=== PATIENT | male | born 1945 | race Caucasian/White ===

== ENCOUNTER → 2018-12-17 09:29 | Outpatient (CLI) | payer MEDICARE, OTHER ==
[~2018-12-17 09:29] MED LIST: ALBUTEROL SULF8.5 GM INH; ALBUTEROL2.5 MG/3 M INH; BAYER CHEWABLE81 MG PO; BICALUTAMIDE PO; BROVANA15 MCG/2 M INH; COREG12.5 MG PO; ELIQUIS5 MG PO; FLUNISOLIDE29 MCG NASAL; FLUTICASONE PRO16 GM; FLUTICASONE PRO16 GM NASAL; MOBIC7.5 MG PO; SINGULAIR10 MG PO; TAMSULOSIN HCL 0.4 MG PO; VOLTAREN100 GM TOPICAL
[2018-12-19 13:21] VITALS: BMI 31.4
== END | disposition home or self-care (01) ==
LOC: D.RT 09:29
PROVIDERS: ATTEND Internal Medicine Cardiovascular Disease
DX: C34.90 Malignant neoplasm of unspecified part of unspecified bronchus or lung (principal)

== ENCOUNTER 2018-12-18 10:15 | Inpatient (IN) | payer MEDICARE, OTHER ==
[~2018-12-18] VITALS: Ht 175.3 cm; Wt 92.2 kg
--- NOTE | 2018-12-18 16:17 | NUR ---
PT ARRIVED DIRECT ADMIT.
[2018-12-18] MEDS ORDERED: MOBIC7.5 MG PO (16:41)
[2018-12-18] MEDS ORDERED: TAMSULOSIN HCL 0.4 MG PO (16:43)
[2018-12-18] MEDS ORDERED: BICALUTAMIDE PO (16:44)
[2018-12-18] MEDS ORDERED: COREG12.5 MG PO (16:45)
[2018-12-18] MEDS ORDERED: VOLTAREN100 GM TOPICAL (16:51)
[2018-12-18] MEDS ORDERED: FLUNISOLIDE29 MCG NASAL (16:52)
[2018-12-18] MEDS ORDERED: ALBUTEROL SULF8.5 GM INH (16:54)
[2018-12-18 17:49] LABS: BASOPHILS 0.3 % (0-2); EOSINOPHILS 4.1 % (0-7); HEMATOCRIT 38.1 % (42.0-54.0); HEMOGLOBIN 12.9 g/dL (13.5-17.5); IMMATURE GRANULOCYTES 0.3 % (0-5); LYMPHOCYTES 30.2 % (15-50); MCH 32.1 pg (26.0-34.0); MCHC 33.9 g/dL (31.0-37.0); MCV 94.8 fL (80.0-100.0); MEAN PLATELET VOLUME 8.8 fL (7.4-10.4); MONOCYTES 6.8 % (2-11); NEUTROPHILS 58.3 % (40-80); PLATELET COUNT 236 10x3/uL (130-400); RBC 4.02 10x6/uL (4.20-6.10); RDW 15.4 % (11.5-14.5); WBC 10.4 10x3/uL (4.8-10.8)
[2018-12-18 18:12] LABS: ANION GAP 13.6 mmol/L (8-16); BILIRUBIN - TOTAL 0.27 mg/dL (0.2-1.3); CALCIUM 9.4 mg/dL (8.5-10.1); CARBON DIOXIDE 28.8 mmol/L (21.0-32.0); CREATININE - SERUM 1.1 mg/dL (0.6-1.3); MAGNESIUM - SERUM 1.7 mg/dL (1.8-2.4); PHOSPHOROUS 3.8 mg/dL (2.5-4.9); POTASSIUM - SERUM 4.4 mmol/L (3.5-5.1); PROTEIN - SERUM 7.5 g/dL (6.4-8.2)
[2018-12-18 18:44] LABS: APPEARANCE HAZY (CLEAR); BILIRUBIN NEGATIVE (NEGATIVE); COLOR YELLOW (YELLOW); GLUCOSE NEGATIVE (NEGATIVE); KETONE NEGATIVE (NEGATIVE); NITRITE NEGATIVE (NEGATIVE); PROTEIN TRACE mg/dL (NEGATIVE); SPECIFIC GRAVITY 1.015 (1.005-1.020); UROBILINOGEN NORMAL (NORMAL)
[2018-12-18 18:48] LABS: BACTERIA MODERATE /hpf (NONE SEEN); RED CELLS - URINE 0-5 /hpf (0-5)
[2018-12-18 19:18] VITALS: BP 140/77; BMI 31.5
--- NOTE | 2018-12-18 19:30 | NUR ---
RESUMING PATIENT CARE. PATIENT IS ALERT AND ORIENTED. RESPIRATIONS ARE EVEN AND UNLABORED. NO S/S OF DISTRESS. NO C/O PAIN. PATIENT REQUESTING A NEW BED. PATIENT UPSET STATING THAT THE BED IS NOT OPERATING PROPERLY AND HE IS UNCOMFORTABLE. FOR PATIENT SATISFACTION PATIENT RECEIVED A NEWER BED WE HAD ON THE FLOOR. ALL OTHER NEEDS MET. CALL LIGHT WITHIN REACH. WILL CPOC.
[2018-12-18 20:00] VITALS: BP 136/52
--- NOTE | 2018-12-18 21:45 | NUR ---
PATIENT UPSET. HE SAID "THAT HE WAS TOLD HE WOULD BE SEEING A DOCTOR HECTOR. HE STATED THAT THIS WAS UNEXCEPTABLY AND THAT OBVIOUSLY HIS CONDITION IS NOT LIFE THREATENING SINCE HE HAS NOT BEEN SEEN." I SAT IN PATIENT ROOM AND ALLOWED HIM TO VENT. PATIENT REFUSED TO TAKE HIS HS MEDS EXCEPT FOR COREG, CASODEX, LOVENOX. CALL LIGHT WITHIN REACH. WILL CPOC.
[2018-12-19] VITALS: BP 134/52
--- NOTE | 2018-12-19 00:11 | NUR ---
PATIENT RESTING COMFORTABLY IN BED. RESPIRATIONS ARE EVEN AND UNLABORED. NO S/S OF DISTRESS. CALL LIGHT WITHIN REACH. WILL CPOC.
[2018-12-19 04:00] VITALS: BP 149/74
--- NOTE | 2018-12-19 07:35 | NUR ---
AM ROUNDING DONE WITH DR MONROY IN TO SEE PATIENT AND . PATIENT IS ON HEART MONITOR SHOWING SR, HR 81. ON ROOM AIR. LEFT HAND PIV SEEN WITH SALINE LOCK. ORANGE SWAB CAP IN USE. WILL CALL MARGY OR ANAND AT DR GARDNER'S OFFICE FOR NICOTINE PATCH THIS AM.
--- NOTE | 2018-12-19 08:33 | NUR ---
PAGE INTO MARGY OR ANAND FOR NICOTINE PATCH. AWAITING CALL BACK.
--- NOTE | 2018-12-19 08:38 | NUR ---
RECEIVED CALL BACK FROM [facility]IAH JI PATCH PER DR GARDNER.
--- NOTE | 2018-12-19 12:57 | NUR ---
COMPLETE BED LINENS CHANGED AND BATH DONE.
[2018-12-19 13:21] VITALS: Ht 175.3 cm; Wt 92.2 kg
--- NOTE | 2018-12-19 15:53 | NUR ---
ARIANNA NEEDS, BEEN VISITING WITH FRIENDS.
--- NOTE | 2018-12-19 16:36 | NUR ---
SITTING ON SIDE OF BED STILL VISITING WITH FRIENDS AND . DENIES ANY NEEDS AT THIS TIME.
--- NOTE | 2018-12-19 19:46 | NUR ---
RECIEVED SITTING UP ON SIDE OF BED WITH SPOUSE AT BEDSIDE. ALERT AND ORIENTED X4. UP AD ANIL. TELEMETRY IN PLACE. IV TO LEFT HAND SL.. DENIES ANY NEEDS AT THIS TIME.
[2018-12-19 21:17] VITALS: BP 116/56
[2018-12-20 01:04] VITALS: BP 121/59
[2018-12-20 03:55] VITALS: BP 103/41
--- NOTE | 2018-12-20 07:30 | NUR ---
RECEIVED PT IN BED SITTING ON SIDE DENIES ANY NEEDS OR DISCOMFORT AT THIS TIME NAD NOTED
[2018-12-20 07:56] VITALS: BP 120/65
--- NOTE | 2018-12-20 10:00 | NUR ---
PT VERY UPSET AWAITING DR GARDNER TO MAKE ROUNDS FOR DISCHARGE
[2018-12-20 13:35] VITALS: BP 123/60
--- NOTE | 2018-12-20 15:10 | NUR ---
CALLED [facility] TO CHECK SEE IF DR GADRNER WAS THERE WAS INFORMED DR ALLEN WAS CROWNING INSPECTOR AND HAD MADE ROUNDS
--- NOTE | 2018-12-20 15:15 | NUR ---
DR ALLEN CALLED STATED WANTED DR ZABALA TO SEE PT AND IF OK WITH HIM PT POSSIBLY DC
[2018-12-20] MEDS ORDERED: BROVANA15 MCG/2 M INH (15:38)
[2018-12-20] MEDS ORDERED: ALBUTEROL2.5 MG/3 M INH (15:39)
[2018-12-20] MEDS ORDERED: ELIQUIS5 MG PO (15:40)
[2018-12-20] MEDS ORDERED: BAYER CHEWABLE81 MG PO (15:45)
[2018-12-20] MEDS ORDERED: SINGULAIR10 MG PO (15:46)
[2018-12-20] MEDS ORDERED: FLUTICASONE PRO16 GM NASAL ×2 (15:49→15:50)
[2018-12-20] MEDS ORDERED: FLUTICASONE PRO16 GM (15:53)
--- NOTE | 2018-12-20 16:45 | NUR ---
DCD SALINE LOCK TO LT HAND WITH IV CATHETER INTACT SITE FREE OF REDNESS OR EDEMA
--- NOTE | 2018-12-20 16:50 | NUR ---
PT WALKING DOWN HALLWAY STATED I WILL BE IN THE CAR FOLLOWING TAKING ITEMS OUT STATED WOULD BE DOWN STAIRS TO GET DISCHARGE PAPERS PUT DISCHARGE PAPERS TOGETHER WENT DOWN STAIR TO COURT SUPERVISOR MAHI GOINS STANDING AT DESK REVIEWED DISCHARGE PAPERWORK. MAHI SPOKE TO CASEMANAGEMENT UPD TREATMENTS AND NEBULIZER ORDERED PT HAD ALL OTHER MEDICATIONS STATED UNDERSTANDING SIGNED DISCHARGE APOLOGIZIED FOR PT BEHAVIOR THANK ME AND LEFT
--- NOTE | 2018-12-20 21:46 | MORECARE ---
CASE MANAGEMENT DISCHARGE SUMMARY PATIENT: KIM GOINS UNIT: [id number] ADM DATE: 12/18/18 AGE: 73 : 47 SEX: M ROOM/BED: D.2118 AUTHOR: PAULINE ALDRIDGE PHYSICIAN: REFERRING PHYSICIAN: DHARA GARDNER MD DATE OF SERVICE: 12/20/18 Discharge Plan Patient Name: KIM GOINS [facility] [facility] 1945 Planned Disposition: Home Anticipated Discharge Date: 12/20/18 Discharge Date: 12/20/2018 Expected LOS: 2 Initial Reviewer: [email or web address] Initial Review Date: 12/18/2018 Generated: 12/20/18 10:45 pm Patient Name: KIM GOINS Page [id number] at 2146 All edits/amendments must be made on the electronic document DICTATION DATE: 12/20/182144 PROPERTY ADJUSTER: AMANDA 12/20/182144 RPT#: [id number] DC DATE:12/20/18 STATUS: DIS IN [facility] [address] [place] [address] END OF REPORT
--- NOTE | 2018-12-20 21:52 | MORECARE ---
CASE MANAGEMENT DISCHARGE SUMMARY PATIENT: KIM GOINS UNIT: [id number] ADM DATE: 12/18/18 AGE: 73 : 47 SEX: M ROOM/BED: D.2118 AUTHOR: PAULINE ALDRIDGE PHYSICIAN: REFERRING PHYSICIAN: DHARA GARDNER MD DATE OF SERVICE: 12/20/18 Discharge Plan Patient Name: KIM GOINS Facility: [facility]:[place] : 1945 Planned Disposition: Home Anticipated Discharge Date: 12/20/18 Discharge Date: 12/20/2018 Expected LOS: 2 Initial Reviewer: [email or web address] Initial Review Date: 12/18/2018 Generated: 12/20/18 10:52 pm Comments DCP- Discharge Planning Updated by [id number]: Magy Trujillo on 12/20/18 8:[address] LATE ENTRY CM RECEIVED TELEPHONE CALL FROM PRIMARY NURSE, ROZ, REGARDING A NEBULIZER FOR THE PATIENT. CM STATED AN ORDER WOULD BE NEEDED.. THE PATIENT WAS IN THE CAR. HE WAS READY FOR DISCHARGE. HE NEEDED A NEBULIZER. CM SPOKE WITH THE ON THE PHONE.TO CONFIRM THE ADDRESS FOR DELIVERY AND CONTACT PHONE NUMBER. HE SON HAS A NEBULIZER THAT HE STATED HE COULD USE.. ADVISED THE PATIENT SHOULD HAVE HIS OWN. HAD NO PREFERRED PROVIDER. CM UNABLE TO MEET W/ PATIENT OR I WAS WITH ANOTHER PATIENT. NURSE OBTAINED AN ORDER. NURSE TO CALL JANITOR CARETAKER TO GET MEDICATION UNTIL DME COULD ORDER THE PATIENT'S. CM WILL FOLLOW UP IN THE AM TO HAVE NEBULIZER DELIVERED. Last DP export: 12/20/18 8:45 p Patient Name: KIM GOINS Page [id number] at 2152 All edits/amendments must be made on the electronic document DICTATION DATE: 12/20/182151 MULTI PUNCH OPERATOR: AMANDA 12/20/182151 RPT#: [id number] DC DATE:12/20/18 STATUS: DIS IN [facility] [address] [place] [address] END OF REPORT
--- NOTE | 2018-12-21 18:28 | MORECARE ---
CASE MANAGEMENT DISCHARGE SUMMARY PATIENT: KIM GOINS UNIT: [id number] ADM DATE: 12/18/18 AGE: 73 : 47 SEX: M ROOM/BED: D.2118 AUTHOR: PAULINE ALDRIDGE PHYSICIAN: REFERRING PHYSICIAN: DHARA GARDNER MD DATE OF SERVICE: 12/21/18 Discharge Plan Patient Name: KIM GOINS Facility: [facility]:[place] : 1945 Planned Disposition: Home Anticipated Discharge Date: 12/20/18 Discharge Date: 12/20/2018 Expected LOS: 2 Initial Reviewer: [email or web address] Initial Review Date: 12/18/2018 Generated: 12/21/18 7:28 pm Comments DCP- Discharge Planning Updated by [email or web address]: Magy Trujillo on 12/20/18 8:[address] LATE ENTRY CM RECEIVED TELEPHONE CALL FROM PRIMARY NURSE, ROZ, REGARDING A NEBULIZER FOR THE PATIENT. CM STATED AN ORDER WOULD BE NEEDED.. THE PATIENT WAS IN THE CAR. HE WAS READY FOR DISCHARGE. HE NEEDED A NEBULIZER. CM SPOKE WITH THE ON THE PHONE.TO CONFIRM THE ADDRESS FOR DELIVERY AND CONTACT PHONE NUMBER. HE SON HAS A NEBULIZER THAT HE STATED HE COULD USE.. ADVISED THE PATIENT SHOULD HAVE HIS OWN. HAD NO PREFERRED PROVIDER. CM UNABLE TO MEET W/ PATIENT OR I WAS WITH ANOTHER PATIENT. NURSE OBTAINED AN ORDER. NURSE TO CALL RESIDENTIAL PLUMBER TO GET MEDICATION UNTIL DME COULD ORDER THE PATIENT'S. CM WILL FOLLOW UP IN THE AM TO HAVE NEBULIZER DELIVERED. Last DP export: 12/20/18 8:52 p Patient Name: KIM GOINS Page [id number] at 1828 All edits/amendments must be made on the electronic document DICTATION DATE: 12/21/181827 CURRICULUM SUPERVISOR: AMANDA 12/21/181827 RPT#: [id number] DC DATE:12/20/18 STATUS: DIS IN [facility] [address] [place] [address] END OF REPORT
--- NOTE | 2018-12-21 18:42 | MORECARE ---
CASE MANAGEMENT DISCHARGE SUMMARY PATIENT: KIM GOINS UNIT: [id number] ADM DATE: 12/18/18 AGE: 73 : 47 SEX: M ROOM/BED: D.4608 AUTHOR: OLY,DOC PHYSICIAN: REFERRING PHYSICIAN: DHARA GARDNER MD DATE OF SERVICE: 12/21/18 Discharge Plan Patient Name: KIM GOINS Facility: [facility]:[place] : 1945 Planned Disposition: Home Anticipated Discharge Date: 12/20/18 Discharge Date: 12/20/2018 Expected LOS: 2 Initial Reviewer: [email or web address] Initial Review Date: 12/18/2018 Generated: 12/21/18 7:42 pm Comments DCP- Discharge Planning Updated by [email or web address]: Magy Trujillo on 12/21/18 5:[address] LATE ENTRY TC TO [facility] [place] IN [place], [place] REGARDING DELIVERY OF NEBULIZER TO THE PATIENT'S HOME. TC TO THE PATIENT AND HE STATED [facility] THE NE[facility]ULIZER TODAY. 180 RECEIVED TELEPHONE CALL FROM KAREN KULKARNI. HE WAS AT THE PATIENT'S HOME W/ NEBULIZER. LUIS REQUESTED FAX NUMBER SO THAT I COULD FAX FACE KYLE, ORDER CONTACT INFORMATION AND CLINICAL INFORMATION. SHAD HERNANDEZ PHONE # [phone] FAX # [phone]. FAXED ABOVE. DCP- Discharge Planning Updated by [id number]: Magy Trujillo on 12/20/18 8:[address] LATE ENTRY CM RECEIVED TELEPHONE CALL FROM PRIMARY NURSE, ROZ, REGARDING A NEBULIZER FOR THE PATIENT. CM STATED AN ORDER WOULD BE NEEDED.. THE PATIENT WAS IN THE CAR. HE WAS READY FOR DISCHARGE. HE NEEDED A NEBULIZER. CM SPOKE WITH THE ON THE PHONE.TO CONFIRM THE ADDRESS FOR DELIVERY AND CONTACT PHONE NUMBER. HE SON HAS A NEBULIZER THAT HE STATED HE COULD USE.. ADVISED THE PATIENT SHOULD HAVE HIS OWN. HAD NO PREFERRED PROVIDER. CM UNABLE TO MEET W/ PATIENT OR I WAS WITH ANOTHER PATIENT. NURSE OBTAINED AN ORDER. NURSE TO CALL FRACTIONATION SUPERVISOR TO GET MEDICATION UNTIL DME COULD ORDER THE PATIENT'S. CM WILL FOLLOW UP IN THE AM TO HAVE NEBULIZER DELIVERED. Last DP export: 12/21/18 5:28 p Patient Name: KIM GOINS Page [phone] at 1842 All edits/amendments must be made on the electronic document DICTATION DATE: 12/21/181841 MERCHANDISING CONSULTANT: AMANDA 12/21/181841 RPT#: [id number] DC DATE:12/20/18 STATUS: DIS IN [facility] [address] [place] [address] END OF REPORT
--- NOTE | 2018-12-22 08:42 | MORECARE ---
CASE MANAGEMENT DISCHARGE SUMMARY PATIENT: KIM GOINS UNIT: [id number] ADM DATE: 12/18/18 AGE: 73 : 47 SEX: M ROOM/BED: D.8756 AUTHOR: OLY,DOC PHYSICIAN: REFERRING PHYSICIAN: DHARA GARDNER MD DATE OF SERVICE: 12/22/18 Discharge Plan Patient Name: KIM GOINS Facility: [facility]:[place] : 1945 Planned Disposition: Home Anticipated Discharge Date: 12/20/18 Discharge Date: 12/20/2018 Expected LOS: 2 Initial Reviewer: [id number] Initial Review Date: 12/18/2018 Generated: 12/22/18 9:42 am Comments DCP- Discharge Planning Updated by [id number]: Magy Trujillo on 12/21/18 5:[address] LATE ENTRY TC TO [facility] IN [place], [place] REGARDING DELIVERY OF NEBULIZER TO THE PATIENT'S HOME. TC TO THE PATIENT AND HE STATED [facility] WOULD BE DELIVERING THE NEBULIZER TODAY. 180 RECEIVED TELEPHONE CALL FROM KAREN KULKARNI. HE WAS AT THE PATIENT'S HOME W/ NEBULIZER. LUIS REQUESTED FAX NUMBER SO THAT I COULD FAX FACE KYLE, ORDER CONTACT INFORMATION AND CLINICAL INFORMATION. SHAD HERNANDEZ PHONE # [phone] FAX # [phone]. FAXED ABOVE. DCP- Discharge Planning Updated by [id number]: Magy Trujillo on 12/20/18 8:[address] LATE ENTRY CM RECEIVED TELEPHONE CALL FROM PRIMARY NURSE, ROZ, REGARDING A NEBULIZER FOR THE PATIENT. CM STATED AN ORDER WOULD BE NEEDED.. THE PATIENT WAS IN THE CAR. HE WAS READY FOR DISCHARGE. HE NEEDED A NEBULIZER. CM SPOKE WITH THE ON THE PHONE.TO CONFIRM THE ADDRESS FOR DELIVERY AND CONTACT PHONE NUMBER. HE SON HAS A NEBULIZER THAT HE STATED HE COULD USE.. ADVISED THE PATIENT SHOULD HAVE HIS OWN. HAD NO PREFERRED PROVIDER. CM UNABLE TO MEET W/ PATIENT OR I WAS WITH ANOTHER PATIENT. NURSE OBTAINED AN ORDER. NURSE TO CALL BARREL LINE OPERATOR TO GET MEDICATION UNTIL DME COULD ORDER THE PATIENT'S. CM WILL FOLLOW UP IN THE AM TO HAVE NEBULIZER DELIVERED. Last DP export: 12/21/18 5:42 p Patient Name: KIM GOINS Page [id number] at 0842 All edits/amendments must be made on the electronic document DICTATION DATE: 12/22/18841 SAND SLINGER OPERATOR: AMANDA 12/22/18841 RPT#: [id number] DC DATE:12/20/18 STATUS: DIS IN [facility] [address] [place] [address] END OF REPORT
== END 2018-12-20 16:50 | disposition home or self-care (01) | DRG 176 ==
LOC: D.CT 10:15 → D.M2 15:49
PROVIDERS: Internal Medicine Pulmonary Disease; ADMIT Internal Medicine Cardiovascular Disease; ATTEND Internal Medicine Cardiovascular Disease
DX: I26.99 Other pulmonary embolism without acute cor pulmonale (principal); C78.02 Secondary malignant neoplasm of left lung; C61 Malignant neoplasm of prostate; I10 Essential (primary) hypertension; E78.5 Hyperlipidemia, unspecified; I25.10 Atherosclerotic heart disease of native coronary artery without angina pectoris; J43.9 Emphysema, unspecified; I27.20 Pulmonary hypertension, unspecified; F17.200 Nicotine dependence, unspecified, uncomplicated; I07.1 Rheumatic tricuspid insufficiency; J30.9 Allergic rhinitis, unspecified